=== PATIENT | female | born 1960 | race Caucasian/White ===

== ENCOUNTER 2022-11-11 21:08 | Emergency (ER) | payer OTHER, SELFPAY ==
--- NOTE | ~2022-11-11 | XR_ITS ---
EXAMINATION: XR CHEST CLINICAL INFORMATION: Shortness of breath COMPARISON: None TECHNIQUE: Frontal view of the chest was obtained. FINDINGS: The lungs are clear. No airspace consolidation, pleural effusion, or pneumothorax. The cardiomediastinal silhouette is within normal limits. No acute osseous injury. XR/XR chest 1V IMPRESSION: No acute pulmonary process.
[2022-11-11 21:31] VITALS: PULSE 135
--- NOTE | 2022-11-11 21:32 | ECG_ITS ---
Test Reason : chest pain Blood Pressure : / mmHG Vent. Rate : 119 BPM Atrial Rate : 119 BPM P-R Int : 148 ms QRS Dur : 080 ms QT Int : 318 ms P-R-T Axes : 065 021 013 degrees QTc Int : 447 ms Sinus tachycardia Nonspecific ST and T wave abnormality Borderline ECG No previous ECGs available Referred By: Xavier Ruiz Electronically Signed By:ISAÍAS CASSIDY
[2022-11-11 21:35] VITALS: BP 139/98; PULSE 120; RESP 20; TEMP 38.1; O2SAT 98
--- NOTE | 2022-11-11 21:35 | ED.ARRPALP ---
HPI - Arrhythmia/Palpitations General Chief Complaint: Arrhythmia/Palpitations Stated Complaint: palpitations Time Seen by Provider: 11/11/22 21:27 Source: patient Mode of arrival: EMS Limitations: no limitations History of Present Illness HPI narrative: Patient is 62 years old with history of AFib, hypertension, as on Eliquis which she stopped for a month ago for dental procedure and pending knee surgery for last 48 hours patient been having palpitation episodes got worse today when EMT reach patient heart rate was 235 narrow complex tachycardia EMT gave her 6+ 12 mg of Adenocard with broken tachycardia but still she has intermittent AFib with heart rate fluctuating in 120s patient was feeling dizzy short of breath and had chest discomfort after palpitations started Related Data Previous Rx's Medication Instructions Recorded apixaban 5 mg tablet (Eliquis) 5 mg PO BID #60 tabs 11/12/22 diltiazem HCl 120 mg 120 mg PO DAILY #30 caps 11/12/22 capsule,extended release 24 hr (Cardizem CD) Allergies Allergy/AdvReac Type Severity Reaction Status Date / Time No Known Allergies Allergy Verified 11/11/22 21:32 Review of Systems Review of Systems: Yes all other systems are reviewed and are negative [facility] Social History Social History Smoked in Last 30 Days: Yes Advance Directives: No Advance Directives Information Provided: No Patient : No Physical Exam Vital Signs: Vital Signs: Last Vital Signs Temp 98.1 F 11/12/22 01:49 Pulse 90 11/12/22 01:49 Resp 14 11/12/22 01:49 BP 106/70 11/12/22 01:49 Pulse Ox 93 11/12/22 01:49 O2 Del Method 11/12/22 01:49 BMI result Body Mass Index 31.2 Appearance: Alert. Oriented X3. No acute distress. Eyes: PERRLA, No Nystagmus ENT: Pharynx normal. Oral Mucosa moist Neck: Normal inspection. Neck supple. CVS: Tachycardia no murmur of Pulses normal. Respiratory: No respiratory distress. Equal air entry bilateral, no wheezing/rales/rhonchi Abdomen: Soft and nontender. Bowel sounds are present, no mass palpable, no CVA tenderness Skin: Skin warm and dry. Normal skin color. Normal skin turgor. Extremities: No lower extremity edema. No calf tenderness Neuro: Oriented X 3. No motor deficit. No sensory deficit.No cerebellar signs , cranial nerves II-XII intact Medications Administered Discontinued Medications Generic Name Dose Route Start Last Admin Trade Name Matthew PRN Reason Stop Dose Admin Acetaminophen 650 mg 11/11/22 21:49 11/11/22 21:59 Acetaminophen 325 Mg Tablet PO 11/11/22 21:50 650 mg ONCE ONE Administration Apixaban 5 mg 11/12/22 02:51 11/12/22 03:07 Apixaban 5 Mg Tablet PO 11/12/22 02:52 5 mg ONCE ONE Administration Diltiazem HCl 10 mg 11/11/22 21:47 11/11/22 21:59 Diltiazem Hcl 50 Mg/10 Ml Vial IVPUSH 11/11/22 21:48 10 mg STAT STA Administration Diltiazem HCl 30 mg 11/12/22 01:48 11/12/22 02:46 Diltiazem Hcl 30 Mg Tablet PO 11/12/22 01:49 30 mg ONCE ONE Administration Protocol Sodium Chloride 1,000 mls @ 999 mls/hr 11/11/22 21:47 11/11/22 23:15 Ns IV 11/11/22 22:47 Infused .Q1H1M ONE Infusion Magnesium Sulfate 2 gm in 50 mls @ 100 mls/hr 11/12/22 01:38 11/12/22 03:17 Magnesium Sulfate/H2o IV 11/12/22 02:07 Infused ONCE ONE Infusion Medical Decision Making Medical Decision Making [facility] Narrative: Patient came with narrow complex tachycardia with background history of AFib after slowing down EKG showed AFib patient was given p.o. Cardizem after IV Cardizem of 10 mg during stay in the ER patient's heart rate stayed around 100 feeling much better now will discharge patient home on Cardizem 120 and advised to continue Eliquis patient was offered to stay in the hospital for further evaluation but patient preferred to go home and follow-up with her own marketing editor Lab Data [facility] Lab Attestation statement: I reviewed the patient's lab results. 11/12/22 00:29 11/12/22 00:29 Labs: Lab Results 11/12/22 11/12/22 11/12/22 Range/Units 00:07 00:08 00:09 WBC (4.8-10.8) X10*3/uL RBC (4.20-5.50) X10*6/uL Hgb (12.0-16.0) g/dl Hct (37.0-47.0) % MCV (80.0-98.0) fL MCH (27.0-33.0) pg MCHC (31.0-35.0) g/dl RDW (11.0-16.0) % Plt Count (160-400) X10*3/uL MPV (9.4-12.3) fL Immature Gran % (Auto) (0.0-0.4) % Neut % (Auto) (45-73) % Lymph % (Auto) (20-40) % [place] % (Auto) (2-11) % Eos % (Auto) (0-4) % Baso % (Auto) (0-2) % Lymph # (Auto) (1.2-4.9) X10*3/uL [place] # (Auto) (0.1-1.2) X10*3/uL Eos # (Auto) (0.0-0.4) X10*3/uL Baso # (Auto) (0.0-0.2) X10*3/uL Abs Immat Gran (auto) (0.00-0.03) X10*3/uL Absolute Neuts (auto) (2.0-8.3) x10*3/uL Absolute Nucleated RBC (0.0-0.012) X10*3/uL Nucleated RBC % (auto) (0.0-0.2) /100WBC PT (10.0-13.1) SEC INR (0.9-1.1) APTT (26.0-36.4) SEC Sodium (135-145) mmol/L Potassium (3.3-5.1) mmol/L Chloride (96-108) mmol/L Carbon Dioxide (22-29) mmol/L Anion Gap (12-20) BUN (9-16) mg/dL Creatinine (0.5-1.4) mg/dL Estim Creat Clear Calc Estimated GFR Random Glucose (60-115) mg/dL Lactic Acid (0.5-2.0) mmol/L Calcium (8.4-10.2) mg/dL Magnesium (1.6-2.6) mg/dL Total Bilirubin (0.0-1.0) mg/dL AST (5-31) U/L ALT (0-31) U/L Alkaline Phosphatase (39-117) U/L Troponin I High Sens (<3.5-17.0) ng/L B-Natriuretic Peptide (<100) pg/mL Total Protein (6.5-8.0) g/dL Albumin (3.5-5.0) g/dL Urine Color Yellow Urine Appearance Clear Urine pH 6.0 (5.0-9.0) Ur Specific [place] 1.015 (1.005-1.025) Urine Protein Negative (Neg-Trace) mg/dL Urine Glucose (UA) Negative (Negative) mg/dL Urine Ketones Negative (Negative) mg/dL Urine Blood Negative (Negative) Urine Nitrite Negative (Negative) Ur Leukocyte Esterase Small (1+) H (Negative) Urine RBC 0-2 (0-2) /HPF Urine WBC 0-5 (0-5) /HPF Ur Squamous Epith Cells 0-2 (0-2) /HPF Urine Bacteria None Seen (None Seen) Hyaline Casts 0-2 (0-2) /LPF COVID-19 (JEFFRY) Negative (Negative) COVID-19 Clin Com See Note Influenza Type A (KVNG) Negative (Negative) Influenza Type B (KVNG) Negative (Negative) Influenza A & B Note See Note 11/12/22 11/12/22 11/12/22 Range/Units 00:21 00:29 00:29 WBC 7.4 (4.8-10.8) X10*3/uL RBC 4.18 L (4.20-5.50) X10*6/uL Hgb 12.3 (12.0-16.0) g/dl Hct 37.3 (37.0-47.0) % MCV 89.2 (80.0-98.0) fL MCH 29.4 (27.0-33.0) pg MCHC 33.0 (31.0-35.0) g/dl RDW 13.3 (11.0-16.0) % Plt Count 282 (160-400) X10*3/uL MPV 11.5 (9.4-12.3) fL Immature Gran % (Auto) 0.1 (0.0-0.4) % Neut % (Auto) 54.8 (45-73) % Lymph % (Auto) 30.8 (20-40) % [place] % (Auto) 8.2 (2-11) % Eos % (Auto) 5.7 H (0-4) % Baso % (Auto) 0.4 (0-2) % Lymph # (Auto) 2.3 (1.2-4.9) X10*3/uL [place] # (Auto) 0.6 (0.1-1.2) X10*3/uL Eos # (Auto) 0.4 (0.0-0.4) X10*3/uL Baso # (Auto) 0.0 (0.0-0.2) X10*3/uL Abs Immat Gran (auto) 0.01 (0.00-0.03) X10*3/uL Absolute Neuts (auto) 4.1 (2.0-8.3) x10*3/uL Absolute Nucleated RBC 0.000 (0.0-0.012) X10*3/uL Nucleated RBC % (auto) 0.0 (0.0-0.2) /100WBC PT (10.0-13.1) SEC INR (0.9-1.1) APTT (26.0-36.4) SEC Sodium 139 (135-145) mmol/L Potassium 4.2 (3.3-5.1) mmol/L Chloride 108 (96-108) mmol/L Carbon Dioxide 23 (22-29) mmol/L Anion Gap 12 (12-20) BUN 16 (9-16) mg/dL Creatinine 0.72 (0.5-1.4) mg/dL Estim Creat Clear Calc 89.5 Estimated GFR > 60 Random Glucose 105 (60-115) mg/dL Lactic Acid 1.2 (0.5-2.0) mmol/L Calcium 8.5 (8.4-10.2) mg/dL Magnesium 1.5 L (1.6-2.6) mg/dL Total Bilirubin 0.3 (0.0-1.0) mg/dL AST 16 (5-31) U/L ALT 15 (0-31) U/L Alkaline Phosphatase 127 H (39-117) U/L Troponin I High Sens (<3.5-17.0) ng/L B-Natriuretic Peptide (<100) pg/mL Total Protein 5.5 L (6.5-8.0) g/dL Albumin 3.4 L (3.5-5.0) g/dL Urine Color Urine Appearance Urine pH (5.0-9.0) Ur Specific [place] (1.005-1.025) Urine Protein (Neg-Trace) mg/dL Urine Glucose (UA) (Negative) mg/dL Urine Ketones (Negative) mg/dL Urine Blood (Negative) Urine Nitrite (Negative) Ur Leukocyte Esterase (Negative) Urine RBC (0-2) /HPF Urine WBC (0-5) /HPF Ur Squamous Epith Cells (0-2) /HPF Urine Bacteria (None Seen) Hyaline Casts (0-2) /LPF COVID-19 (JEFFRY) (Negative) COVID-19 Clin Com Influenza Type A (KVNG) (Negative) Influenza Type B (KVNG) (Negative) Influenza A & B Note 11/12/22 11/12/22 11/12/22 Range/Units 00:29 00:29 00:29 WBC (4.8-10.8) X10*3/uL RBC (4.20-5.50) X10*6/uL Hgb (12.0-16.0) g/dl Hct (37.0-47.0) % MCV (80.0-98.0) fL MCH (27.0-33.0) pg MCHC (31.0-35.0) g/dl RDW (11.0-16.0) % Plt Count (160-400) X10*3/uL MPV (9.4-12.3) fL Immature Gran % (Auto) (0.0-0.4) % Neut % (Auto) (45-73) % Lymph % (Auto) (20-40) % [place] % (Auto) (2-11) % Eos % (Auto) (0-4) % Baso % (Auto) (0-2) % Lymph # (Auto) (1.2-4.9) X10*3/uL [place] # (Auto) (0.1-1.2) X10*3/uL Eos # (Auto) (0.0-0.4) X10*3/uL Baso # (Auto) (0.0-0.2) X10*3/uL Abs Immat Gran (auto) (0.00-0.03) X10*3/uL Absolute Neuts (auto) (2.0-8.3) x10*3/uL Absolute Nucleated RBC (0.0-0.012) X10*3/uL Nucleated RBC % (auto) (0.0-0.2) /100WBC PT 12.2 (10.0-13.1) SEC INR 1.1 (0.9-1.1) APTT 35.9 (26.0-36.4) SEC Sodium (135-145) mmol/L Potassium (3.3-5.1) mmol/L Chloride (96-108) mmol/L Carbon Dioxide (22-29) mmol/L Anion Gap (12-20) BUN (9-16) mg/dL Creatinine (0.5-1.4) mg/dL Estim Creat Clear Calc Estimated GFR Random Glucose (60-115) mg/dL Lactic Acid (0.5-2.0) mmol/L Calcium (8.4-10.2) mg/dL Magnesium (1.6-2.6) mg/dL Total Bilirubin (0.0-1.0) mg/dL AST (5-31) U/L ALT (0-31) U/L Alkaline Phosphatase (39-117) U/L Troponin I High Sens 17.6 H (<3.5-17.0) ng/L B-Natriuretic Peptide 289 H (<100) pg/mL Total Protein (6.5-8.0) g/dL Albumin (3.5-5.0) g/dL Urine Color Urine Appearance Urine pH (5.0-9.0) Ur Specific [place] (1.005-1.025) Urine Protein (Neg-Trace) mg/dL Urine Glucose (UA) (Negative) mg/dL Urine Ketones (Negative) mg/dL Urine Blood (Negative) Urine Nitrite (Negative) Ur Leukocyte Esterase (Negative) Urine RBC (0-2) /HPF Urine WBC (0-5) /HPF Ur Squamous Epith Cells (0-2) /HPF Urine Bacteria (None Seen) Hyaline Casts (0-2) /LPF COVID-19 (JEFFRY) (Negative) COVID-19 Clin Com Influenza Type A (KVNG) (Negative) Influenza Type B (KVNG) (Negative) Influenza A & B Note Independent Interpretation I performed an independent interpretation of an: EKG Interpretation: Sinus tachycardia heart rate 119 beats per minute no acute ST T wave changes no acute ischemia Critical Care Time Critical Care Time Critical Care Time: Yes Total Critical Care Time: 55 Attestation: The patient was critically ill with a high probability of imminent or life threatening deterioration. I spent greater than 60 minutes of discontinuous time evaluating the patient,delivering critical care at the bedside, discussing and evaluating pertinent data with consultants. Critical care time does not include time spent performing separately billable procedures or teaching. Total time spent performing critical care was 55 minutes. Discharge Plan Discharge Clinical Impression: Atrial fibrillation Patient Disposition: Home, Self-Care Instructions: A-fib (Atrial Fibrillation) (ED) Additional Instructions: Take Eliquis 5 mg twice daily as was given to you by your PCP Start taking Cardizem CD 120 mg daily and follow up with marketing editor Report to the ER if recurrence of palpitation Prescriptions: New diltiazem HCl [Cardizem CD] 120 mg capsule,extended release 24hr 120 mg PO DAILY Qty: 30 0RF Eliquis 5 mg tablet 5 mg PO BID Qty: 60 0RF Interventions: ED Discharge Assessment Last Done: 11/12/22 04:32 Discharge Date/Time: 11/12/22 03:30
--- NOTE | 2022-11-11 21:36 | ED.ARRPALP ---
HPI - Arrhythmia/Palpitations General Chief Complaint: Arrhythmia/Palpitations Stated Complaint: palpitations Time Seen by Provider: 11/11/22 21:27 Related Data Previous Rx's Medication Instructions Recorded apixaban 5 mg tablet (Eliquis) 5 mg PO BID #60 tabs 11/12/22 diltiazem HCl 120 mg 120 mg PO DAILY #30 caps 11/12/22 capsule,extended release 24 hr (Cardizem CD) Allergies Allergy/AdvReac Type Severity Reaction Status Date / Time No Known Allergies Allergy Verified 11/11/22 21:32 [facility] Social History Social History Smoked in Last 30 Days: Yes Advance Directives: No Advance Directives Information Provided: No Patient : No Physical Exam Vital Signs: Vital Signs: Last Vital Signs Temp 98.1 F 11/12/22 01:49 Pulse 90 11/12/22 01:49 Resp 14 11/12/22 01:49 BP 106/70 11/12/22 01:49 Pulse Ox 93 11/12/22 01:49 O2 Del Method 11/12/22 01:49 BMI result Body Mass Index 31.2 Medications Administered Discontinued Medications Generic Name Dose Route Start Last Admin Trade Name Freq PRN Reason Stop Dose Admin Acetaminophen 650 mg 11/11/22 21:49 11/11/22 21:59 Acetaminophen 325 Mg Tablet PO 11/11/22 21:50 650 mg ONCE ONE Administration Apixaban 5 mg 11/12/22 02:51 11/12/22 03:07 Apixaban 5 Mg Tablet PO 11/12/22 02:52 5 mg ONCE ONE Administration Diltiazem HCl 10 mg 11/11/22 21:47 11/11/22 21:59 Diltiazem Hcl 50 Mg/10 Ml Vial IVPUSH 11/11/22 21:48 10 mg STAT STA Administration Diltiazem HCl 30 mg 11/12/22 01:48 11/12/22 02:46 Diltiazem Hcl 30 Mg Tablet PO 11/12/22 01:49 30 mg ONCE ONE Administration Protocol Sodium Chloride 1,000 mls @ 999 mls/hr 11/11/22 21:47 11/11/22 23:15 Ns IV 11/11/22 22:47 Infused .Q1H1M ONE Infusion Magnesium Sulfate 2 gm in 50 mls @ 100 mls/hr 11/12/22 01:38 11/12/22 02:46 Magnesium Sulfate/H2o IV 11/12/22 02:07 100 mls/hr ONCE ONE Administration Medical Decision Making Medical Decision Making [facility] Narrative: Patient with AFib with fast ventricular rate improved after Cardizem at this time patient heart rate is mostly less than 100 patient feeling much better now was given p.o. Naomi does not want to stay in the hospital for further evaluation would like to follow-up with her own attendant self service store discharge patient home on Cardizem and Eliquis Differential Diagnosis Differential Diagnoses: The differential diagnosis associated with the presentation includes SVT/AFib/atrial flutter/PVCs Lab Data [facility] Lab Attestation statement: I reviewed the patient's lab results. 11/12/22 00:29 11/12/22 00:29 Labs: Lab Results 11/12/22 11/12/22 11/12/22 Range/Units 00:07 00:08 00:09 WBC (4.8-10.8) X10*3/uL RBC (4.20-5.50) X10*6/uL Hgb (12.0-16.0) g/dl Hct (37.0-47.0) % MCV (80.0-98.0) fL MCH (27.0-33.0) pg MCHC (31.0-35.0) g/dl RDW (11.0-16.0) % Plt Count (160-400) X10*3/uL MPV (9.4-12.3) fL Immature Gran % (Auto) (0.0-0.4) % Neut % (Auto) (45-73) % Lymph % (Auto) (20-40) % [place] % (Auto) (2-11) % Eos % (Auto) (0-4) % Baso % (Auto) (0-2) % Lymph # (Auto) (1.2-4.9) X10*3/uL [place] # (Auto) (0.1-1.2) X10*3/uL Eos # (Auto) (0.0-0.4) X10*3/uL Baso # (Auto) (0.0-0.2) X10*3/uL Abs Immat Gran (auto) (0.00-0.03) X10*3/uL Absolute Neuts (auto) (2.0-8.3) x10*3/uL Absolute Nucleated RBC (0.0-0.012) X10*3/uL Nucleated RBC % (auto) (0.0-0.2) /100WBC PT (10.0-13.1) SEC INR (0.9-1.1) APTT (26.0-36.4) SEC Sodium (135-145) mmol/L Potassium (3.3-5.1) mmol/L Chloride (96-108) mmol/L Carbon Dioxide (22-29) mmol/L Anion Gap (12-20) BUN (9-16) mg/dL Creatinine (0.5-1.4) mg/dL Estim Creat Clear Calc Estimated GFR Random Glucose (60-115) mg/dL Lactic Acid (0.5-2.0) mmol/L Calcium (8.4-10.2) mg/dL Magnesium (1.6-2.6) mg/dL Total Bilirubin (0.0-1.0) mg/dL AST (5-31) U/L ALT (0-31) U/L Alkaline Phosphatase (39-117) U/L Troponin I High Sens (<3.5-17.0) ng/L B-Natriuretic Peptide (<100) pg/mL Total Protein (6.5-8.0) g/dL Albumin (3.5-5.0) g/dL Urine Color Yellow Urine Appearance Clear Urine pH 6.0 (5.0-9.0) Ur Specific [place] 1.015 (1.005-1.025) Urine Protein Negative (Neg-Trace) mg/dL Urine Glucose (UA) Negative (Negative) mg/dL Urine Ketones Negative (Negative) mg/dL Urine Blood Negative (Negative) Urine Nitrite Negative (Negative) Ur Leukocyte Esterase Small (1+) H (Negative) Urine RBC 0-2 (0-2) /HPF Urine WBC 0-5 (0-5) /HPF Ur Squamous Epith Cells 0-2 (0-2) /HPF Urine Bacteria None Seen (None Seen) Hyaline Casts 0-2 (0-2) /LPF COVID-19 (JEFFRY) Negative (Negative) COVID-19 Clin Com See Note Influenza Type A (KVNG) Negative (Negative) Influenza Type B (KVNG) Negative (Negative) Influenza A & B Note See Note 11/12/22 11/12/22 11/12/22 Range/Units 00:21 00:29 00:29 WBC 7.4 (4.8-10.8) X10*3/uL RBC 4.18 L (4.20-5.50) X10*6/uL Hgb 12.3 (12.0-16.0) g/dl Hct 37.3 (37.0-47.0) % MCV 89.2 (80.0-98.0) fL MCH 29.4 (27.0-33.0) pg MCHC 33.0 (31.0-35.0) g/dl RDW 13.3 (11.0-16.0) % Plt Count 282 (160-400) X10*3/uL MPV 11.5 (9.4-12.3) fL Immature Gran % (Auto) 0.1 (0.0-0.4) % Neut % (Auto) 54.8 (45-73) % Lymph % (Auto) 30.8 (20-40) % [place] % (Auto) 8.2 (2-11) % Eos % (Auto) 5.7 H (0-4) % Baso % (Auto) 0.4 (0-2) % Lymph # (Auto) 2.3 (1.2-4.9) X10*3/uL [place] # (Auto) 0.6 (0.1-1.2) X10*3/uL Eos # (Auto) 0.4 (0.0-0.4) X10*3/uL Baso # (Auto) 0.0 (0.0-0.2) X10*3/uL Abs Immat Gran (auto) 0.01 (0.00-0.03) X10*3/uL Absolute Neuts (auto) 4.1 (2.0-8.3) x10*3/uL Absolute Nucleated RBC 0.000 (0.0-0.012) X10*3/uL Nucleated RBC % (auto) 0.0 (0.0-0.2) /100WBC PT (10.0-13.1) SEC INR (0.9-1.1) APTT (26.0-36.4) SEC Sodium 139 (135-145) mmol/L Potassium 4.2 (3.3-5.1) mmol/L Chloride 108 (96-108) mmol/L Carbon Dioxide 23 (22-29) mmol/L Anion Gap 12 (12-20) BUN 16 (9-16) mg/dL Creatinine 0.72 (0.5-1.4) mg/dL Estim Creat Clear Calc 89.5 Estimated GFR > 60 Random Glucose 105 (60-115) mg/dL Lactic Acid 1.2 (0.5-2.0) mmol/L Calcium 8.5 (8.4-10.2) mg/dL Magnesium 1.5 L (1.6-2.6) mg/dL Total Bilirubin 0.3 (0.0-1.0) mg/dL AST 16 (5-31) U/L ALT 15 (0-31) U/L Alkaline Phosphatase 127 H (39-117) U/L Troponin I High Sens (<3.5-17.0) ng/L B-Natriuretic Peptide (<100) pg/mL Total Protein 5.5 L (6.5-8.0) g/dL Albumin 3.4 L (3.5-5.0) g/dL Urine Color Urine Appearance Urine pH (5.0-9.0) Ur Specific [place] (1.005-1.025) Urine Protein (Neg-Trace) mg/dL Urine Glucose (UA) (Negative) mg/dL Urine Ketones (Negative) mg/dL Urine Blood (Negative) Urine Nitrite (Negative) Ur Leukocyte Esterase (Negative) Urine RBC (0-2) /HPF Urine WBC (0-5) /HPF Ur Squamous Epith Cells (0-2) /HPF Urine Bacteria (None Seen) Hyaline Casts (0-2) /LPF COVID-19 (JEFFRY) (Negative) COVID-19 Clin Com Influenza Type A (KVNG) (Negative) Influenza Type B (KVNG) (Negative) Influenza A & B Note 11/12/22 11/12/22 11/12/22 Range/Units 00:29 00:29 00:29 WBC (4.8-10.8) X10*3/uL RBC (4.20-5.50) X10*6/uL Hgb (12.0-16.0) g/dl Hct (37.0-47.0) % MCV (80.0-98.0) fL MCH (27.0-33.0) pg MCHC (31.0-35.0) g/dl RDW (11.0-16.0) % Plt Count (160-400) X10*3/uL MPV (9.4-12.3) fL Immature Gran % (Auto) (0.0-0.4) % Neut % (Auto) (45-73) % Lymph % (Auto) (20-40) % [place] % (Auto) (2-11) % Eos % (Auto) (0-4) % Baso % (Auto) (0-2) % Lymph # (Auto) (1.2-4.9) X10*3/uL [place] # (Auto) (0.1-1.2) X10*3/uL Eos # (Auto) (0.0-0.4) X10*3/uL Baso # (Auto) (0.0-0.2) X10*3/uL Abs Immat Gran (auto) (0.00-0.03) X10*3/uL Absolute Neuts (auto) (2.0-8.3) x10*3/uL Absolute Nucleated RBC (0.0-0.012) X10*3/uL Nucleated RBC % (auto) (0.0-0.2) /100WBC PT 12.2 (10.0-13.1) SEC INR 1.1 (0.9-1.1) APTT 35.9 (26.0-36.4) SEC Sodium (135-145) mmol/L Potassium (3.3-5.1) mmol/L Chloride (96-108) mmol/L Carbon Dioxide (22-29) mmol/L Anion Gap (12-20) BUN (9-16) mg/dL Creatinine (0.5-1.4) mg/dL Estim Creat Clear Calc Estimated GFR Random Glucose (60-115) mg/dL Lactic Acid (0.5-2.0) mmol/L Calcium (8.4-10.2) mg/dL Magnesium (1.6-2.6) mg/dL Total Bilirubin (0.0-1.0) mg/dL AST (5-31) U/L ALT (0-31) U/L Alkaline Phosphatase (39-117) U/L Troponin I High Sens 17.6 H (<3.5-17.0) ng/L B-Natriuretic Peptide 289 H (<100) pg/mL Total Protein (6.5-8.0) g/dL Albumin (3.5-5.0) g/dL Urine Color Urine Appearance Urine pH (5.0-9.0) Ur Specific [place] (1.005-1.025) Urine Protein (Neg-Trace) mg/dL Urine Glucose (UA) (Negative) mg/dL Urine Ketones (Negative) mg/dL Urine Blood (Negative) Urine Nitrite (Negative) Ur Leukocyte Esterase (Negative) Urine RBC (0-2) /HPF Urine WBC (0-5) /HPF Ur Squamous Epith Cells (0-2) /HPF Urine Bacteria (None Seen) Hyaline Casts (0-2) /LPF COVID-19 (JEFFRY) (Negative) COVID-19 Clin Com Influenza Type A (KVNG) (Negative) Influenza Type B (KVNG) (Negative) Influenza A & B Note Independent Interpretation I performed an independent interpretation of an: EKG Interpretation: Narrow complex tachycardia heart rate 119 beats per minute no acute ST-T no acute ischemia Repeat EKG showed atrial fibrillation heart rate 87 beats per minute no acute ischemic changes Discharge Plan Discharge Clinical Impression: Atrial fibrillation Patient Disposition: Home, Self-Care Instructions: A-fib (Atrial Fibrillation) (ED) Additional Instructions: Take Eliquis 5 mg twice daily as was given to you by your PCP Start taking Cardizem CD 120 mg daily and follow up with attendant [employer] [facility] store Report to the ER if recurrence of palpitation Prescriptions: New diltiazem HCl [Cardizem CD] 120 mg capsule,extended release 24hr 120 mg PO DAILY Qty: 30 0RF Eliquis 5 mg tablet 5 mg PO BID Qty: 60 0RF
--- NOTE | 2022-11-11 21:42 | PC.NURSE ---
pt c/o palpitations that began two days ago, chest pain that worsens when ambulating h/o afib and is on blood thinners (eloquis)
[2022-11-11 21:44] VITALS: BP 126/82; PULSE 120; O2SAT 98
[2022-11-11 21:46] VITALS: BP 139/98; PULSE 119; RESP 17; TEMP 38.1; O2SAT 98; BMI 31.2
[2022-11-11] MEDS: dilTIAZem HCL 50 MG/10 ML VIAL 10 MG IVPUSH (21:59)
[2022-11-11] MEDS: Acetaminophen 325 MG TABLET 650 MG PO (21:59)
--- NOTE | 2022-11-11 21:59 | PC.NURSE ---
10 mg cardizem IV push administered
[2022-11-11] MEDS: 0.9 % Sodium Chloride 1,000 ML 999 ML IV (22:00)
--- NOTE | 2022-11-11 22:24 | PC.NURSE ---
IV access est 20g to L hand by EMS
--- NOTE | 2022-11-11 22:26 | PC.NURSE ---
vs assessed; cardizem admin from 2158 effective- pt's HR from 120 trended down 90
[2022-11-11 22:27] VITALS: BP 120/75; PULSE 90; RESP 15; O2SAT 98
--- NOTE | 2022-11-11 22:29 | PC.NURSE ---
Addendum entered by Soni Porter 11/11/22 22:30: tylenol po was administered at 2159 Original Note: tylenol PO administered per DEC; will reassess for efficacy in treating pain and fever of 100.6
--- NOTE | 2022-11-11 22:33 | PC.NURSE ---
pt ambulated to restroom and HR increased to 125 upon arrival to room; provider notified
--- NOTE | 2022-11-11 23:18 | ECG_ITS ---
Test Reason : ?at fib Blood Pressure : / mmHG Vent. Rate : 087 BPM Atrial Rate : 000 BPM P-R Int : 000 ms QRS Dur : 082 ms QT Int : 362 ms P-R-T Axes : 000 012 008 degrees QTc Int : 435 ms Atrial fibrillation Abnormal ECG When compared with ECG of 11-NOV-2022 21:32, Atrial fibrillation has replaced Sinus rhythm Referred By: Xavier Ruiz Electronically Signed By:ISAÍAS CASSIDY
[2022-11-11 23:46] VITALS: BP 114/76; PULSE 91; RESP 18; TEMP 36.8; O2SAT 97
--- NOTE | 2022-11-12 00:01 | MHC.EDTECH ---
Pt 1x assisted to the bathroom. Pt 1x assisted back to bed. Pt given warm blankets and call grijalva placed in reach
[2022-11-12 00:39] LABS: MANUAL DIFF FLAG NO
[2022-11-12 00:40] LABS: Basophils Percent Auto 0.4 % (0-2); Eosinophils Absolute Auto 0.4 X10*3/uL (0.0-0.4); Eosinophils Percent Auto 5.7 % (0-4); Hematocrit 37.3 % (37.0-47.0); Hemoglobin 12.3 g/dl (12.0-16.0); Imm Gran Abs Auto 0.01 X10*3/uL (0.00-0.03); Imm Gran Pct Auto 0.1 % (0.0-0.4); Lymphocytes Absolute Auto 2.3 X10*3/uL (1.2-4.9); Lymphocytes Percent Auto 30.8 % (20-40); Mean Corpuscular Hemoglobin 29.4 pg (27.0-33.0); Mean Corpuscular Volume 89.2 fL (80.0-98.0); Mean Platelet Volume 11.5 fL (9.4-12.3); Monocytes Absolute Auto 0.6 X10*3/uL (0.1-1.2); Monocytes Percent Auto 8.2 % (2-11); Neutrophils Absolute Auto 4.1 x10*3/uL (2.0-8.3); Neutrophils Percent Auto 54.8 % (45-73); Platelet Count 282 X10*3/uL (160-400); Red Blood Count 4.18 X10*6/uL (4.20-5.50); Red Cell Distribution Width 13.3 % (11.0-16.0); White Blood Count 7.4 X10*3/uL (4.8-10.8)
[2022-11-12 00:44] LABS: Appearance Urine Clear; Color Urine Yellow; Glucose Urine UA Negative (Negative); Leukocyte Esterase Urine Small (1+) (Negative); Nitrite Urine Negative (Negative); Specific Gravity - Urine 1.015 (1.005-1.025); UMIC TRIGGER UACC YES; Urine Blood Negative (Negative); Urine Ketones Negative (Negative); Urine Protein Negative (Neg-Trace)
[2022-11-12 00:53] LABS: Lactic Acid 1.2 mmol/L (0.5-2.0)
[2022-11-12 00:53] LABS: COVID-19 Test Negative (Negative); IDNOW Serial# 16C4AD1C
[2022-11-12 00:53] LABS: IDNOW Serial# BCCEAD1C; Influenza A Negative (Negative); Influenza B2 Negative (Negative)
[2022-11-12 00:55] LABS: Bacteria Urine None Seen (None Seen); Hyaline Casts Urine 0-2 /LPF (0-2); RBC Urine 0-2 /HPF (0-2); Squamous Epithelial Cell Urine 0-2 /HPF (0-2); UACC Culture Trigger YES; WBC Urine 0-5 /HPF (0-5)
[2022-11-12 00:57] LABS: Alanine Aminotransferase 15 U/L (0-31); Albumin Level 3.4 g/dL (3.5-5.0); Alkaline Phosphatase 127 U/L (39-117); Anion Gap 12 (12-20); Aspartate Amino Transferase 16 U/L (5-31); Bilirubin Total 0.3 mg/dL (0.0-1.0); Blood Urea Nitrogen 16 mg/dL (9-16); Calcium 8.5 mg/dL (8.4-10.2); Carbon Dioxide 23 mmol/L (22-29); Chloride 108 mmol/L (96-108); Creatinine Clr Calc Pharmacy 89.5; Estimated Glomerular Filt Rate > 60; Glucose Random 105 mg/dL (60-115); Magnesium 1.5 mg/dL (1.6-2.6); Potassium 4.2 mmol/L (3.3-5.1); Sodium 139 mmol/L (135-145); Total Protein 5.5 g/dL (6.5-8.0)
[2022-11-12 01:03] LABS: B Type Natriuretic Peptide 289 pg/mL (<100)
[2022-11-12 01:04] LABS: Troponin-I High Sensitivity 17.6 ng/L (<3.5-17.0)
[2022-11-12 01:08] LABS: INTERNATIONAL NORM RATIO 1.1 (0.9-1.1); Prothrombin Time 12.2 SEC (10.0-13.1)
[2022-11-12 01:11] LABS: Partial Thromboplastin Time 35.9 SEC (26.0-36.4)
[2022-11-12 01:49] VITALS: BP 106/70; PULSE 90; RESP 14; TEMP 36.7; O2SAT 93
[2022-11-12] MEDS: Magnesium Sulfate/H2O 2 GM/50 ML PIGGYBACK IV (02:46)
[2022-11-12] MEDS: dilTIAZem HCL 30 MG TABLET PO (02:46)
[2022-11-12] MEDS: Apixaban 5 MG TABLET PO (03:07)
--- NOTE | 2022-11-12 03:14 | MHC.EDTECH ---
EKG done @ 1:44AM . Unable to document in work list RN AND CHARGE Nurse made aware
--- NOTE | 2022-11-12 04:32 | PC.NURSE ---
discharge instructions given/explained, ambulates safely/independently, alert and oriented, all questions answered, no apparent distress, NO RESPIRATPRY DISTRESS, NO SOB ABLE TO SPEAK IN FULL SENTENCES
== END 2022-11-12 03:30 | disposition home or self-care (01) ==
PROVIDERS: Emergency Provider Internal Medicine; PCP Internal Medicine
DX: I48.91 Unspecified atrial fibrillation (principal); I49.9 Cardiac arrhythmia, unspecified; R06.02 Shortness of breath; Z79.01 Long term (current) use of anticoagulants; Z20.822 Contact with and (suspected) exposure to COVID-19; Z20.828 Contact with and (suspected) exposure to other viral communicable diseases; Z79.899 Other long term (current) drug therapy
CPT/HCPCS: 36415; 71045; 80053; 81001; 83605; 83735; 83880; 84484; 85025; 85610; 85730; 87040; 87086; 87502; 87635; 93005; 96361; 96365; 96375; 99284; 99285; J3475